=== PATIENT | female | born 1975 | race Caucasian/White ===

== ENCOUNTER 2017-01-01 13:04 | Inpatient (IN) | payer OTHER ==
[~2017-01-01] VITALS: Ht 162.6 cm; Wt 90.5 kg
[~2017-01-01 13:04] MED LIST: ADDERALL10 MG PO; CYMBALTA60 MG PO; FLEXERIL10 MG PO; MOTRIN800 MG PO; NORCO 5/3251 TABLET PO; TRAZODONE; TRAZODONE HCL100 MG PO; ULTRAM50 MG PO
[2017-01-01 13:50] LABS: BASOPHIL COUNT 0.1 K/uL (0-0.1); EOSINOPHIL (%) 0.9 % (0-5); EOSINOPHIL COUNT 0.1 K/uL (0-0.3); HEMATOCRIT 40.1 % (36.0-46.0); IMMATURE GRANULOCYTE (%) 0.7 % (0.0-0.7); IMMATURE GRANULOCYTE COUNT 0.1 K/uL; INSTRUMENT ABS NEUTROPHIL CT 9.9 K/uL; LYMPHOCYTE COUNT 1.6 K/uL (1.0-2.8); MCH 28.2 PG (29.0-34.0); MCHC 34.2 G/DL (30.0-36.0); MCV 82.5 FL (83-99); MEAN PLAT.VOLUME 9.9 uM^3 (9.5-12.4); MONOCYTE (%) 4.4 % (3-12); MONOCYTE COUNT 0.5 K/uL (0-0.8); NEUTROPHIL (%) 80.7 % (45-76); NEUTROPHIL COUNT 9.9 K/uL (1.8-6.4); PLATELET COUNT 336 K/uL (156-360); RBC DIS.WIDTH-CV 13.2 % (11.8-14.6); RBC DIS.WIDTH-SD 39.4 % (39-53); RED BLOOD COUNT 4.86 M/uL (3.80-5.20); WHITE BLOOD COUNT 12.2 K/uL (4.1-10.2)
[2017-01-01 14:03] LABS: CHLORIDE 105 mEq/L (99-109); POTASSIUM 4.4 mEq/L (3.7-5.4); SODIUM 140 mEq/L (136-147)
[2017-01-01 14:04] LABS: GLUCOSE 81 mg/dL (70-99)
[2017-01-01 14:06] LABS: ANION GAP 14 MEQ/L (2-14)
[2017-01-01 14:08] LABS: GFR ESTIMATE (CALCULATED) > 59 mL/min/; SERUM ETHYL ALCOHOL < 10 mg/dL
[2017-01-01 14:09] LABS: UREA NITROGEN (BUN) 13 mg/dL (9-23)
[2017-01-01 14:16] LABS: QUANTITATIVE HCG < 4.0 MIU/ML
[2017-01-01] MEDS ORDERED: TRAZODONE HCL50 MG PO (15:38)
[2017-01-01] MEDS ORDERED: PROZAC40 MG PO (15:42)
[2017-01-01] MEDS ORDERED: ALEVE220 MG PO (15:42)
[2017-01-01] MEDS ORDERED: BUPROPION HCL150 M2 PO (15:43)
[2017-01-01 16:22] LABS: ADD MIUA? YES; BILIRUBIN NEGATIVE; BLOOD NEGATIVE; COLOR YELLOW ((YELLOW)); GLUCOSE (STRIP) NEGATIVE; KETONES 20; LEUKOCYTES SMALL; NITRITE NEGATIVE; PROTEIN (STRIP) 30; SPECIFIC GRAVITY 1.021 (1.000-1.030); UROBILINOGEN 0.2 MG/DL (0.2-1.0)
[2017-01-01 16:34] LABS: ADD MEDTOX COMMENT Y; AMPHETAMINE NEGATIVE (500 ng/mL); BARBITURATES NEGATIVE (200 ng/mL); BENZODIAZEPINES PRESUMPTIVE POSITIVE (150 ng/mL); COCAINE NEGATIVE (150 ng/mL); INTERNAL CONTROLS VALID? YES; METHADONE NEGATIVE (200 ng/mL); METHAMPHETAMINE NEGATIVE (500 ng/mL); OPIATES (MORPHINE) NEGATIVE (100 ng/mL); OXYCODONE NEGATIVE (100 ng/mL); PHENCYCLIDINE NEGATIVE (25 ng/mL); PROPOXYPHENE NEGATIVE (300 ng/mL); THC CANNABINOIDS NEGATIVE (50 ng/mL); TRICYCLIC ANTIDEPRESSANTS NEGATIVE (300 ng/mL)
[2017-01-01 16:39] LABS: BACTERIA NONE SEEN /HPF; EPITHELIAL CELLS 1+ /HPF; MUCUS 1+ /LPF; WHITE BLOOD CELLS 0-5 /HPF (0-5)
[2017-01-01 16:57] LABS: BENZODIAZEPINES QUANT VALUE 0 NG/ML
[2017-01-01 17:01] VITALS: BP 144/83
[2017-01-01 17:20] LABS: BENZODIAZEPINES, URINE SCREEN Negative (200 ng/mL)
[2017-01-02 07:44] VITALS: BP 121/75
[2017-01-02 16:03] VITALS: BP 146/77
[2017-01-02 20:44] VITALS: BP 144/98
[2017-01-03 07:58] VITALS: BP 120/74
[2017-01-03 14:58] VITALS: BP 136/88
[2017-01-04] MEDS ORDERED: BUSPAR10 MG PO (09:47)
[2017-01-04] MEDS ORDERED: BUPROPION HCL150 M2 PO (09:47)
[2017-01-04] MEDS ORDERED: TRAZODONE HCL50 MG PO (09:47)
[2017-01-04 10:08] VITALS: BP 126/84
== END 2017-01-04 11:23 | disposition home or self-care (01) | DRG 885 ==
LOC: EME 13:04 → EDOF 14:40 → 1WEST 14:40
PROVIDERS: Emergency Medicine
DX: F33.1 Major depressive disorder, recurrent, moderate (principal); R45.851 Suicidal ideations; G47.9 Sleep disorder, unspecified; F10.10 Alcohol abuse, uncomplicated; G89.29 Other chronic pain; F41.9 Anxiety disorder, unspecified; F17.210 Nicotine dependence, cigarettes, uncomplicated; Z81.8 Family history of other mental and behavioral disorders
CPT/HCPCS: 80048; 81003; 84702; 84999; 85025; 90839; 97150 GO; 97165 GO; 99281; 99284; G0480